=== PATIENT | male | born 1945 | race Caucasian/White ===

== ENCOUNTER → 2017-10-08 | Outpatient (CLI) | payer OTHER, MEDICARE | LOC: BHCLAF 09:15 | PROVIDERS: ATTEND Internal Medicine Cardiovascular Disease | DX: I71.2 Thoracic aortic aneurysm, without rupture (principal); I10 Essential (primary) hypertension; I25.10 Atherosclerotic heart disease of native coronary artery without angina pectoris | CPT/HCPCS: 93306-PO ==

== ENCOUNTER → 2017-10-25 | Outpatient (CLI) | payer OTHER, MEDICARE ==
[~2017-10-25] MED LIST: IOPAMIDOL (ISOVUE 370) 100 ML BTL IV ONE
== END ==
LOC: FIMAGING 07:49
PROVIDERS: ATTEND Internal Medicine Cardiovascular Disease
DX: I71.2 Thoracic aortic aneurysm, without rupture (principal); J43.9 Emphysema, unspecified
CPT/HCPCS: 71275; Q9967

== ENCOUNTER 2018-01-28 07:31 | Day surgery (SDC) | payer OTHER, MEDICARE ==
[2018-01-28] MEDS ORDERED: DIAZEPAM 5 MG TAB PO ONE (07:37)
[2018-01-28] MEDS ORDERED: NS 1,000 ML IV ONE (07:37)
[2018-01-28] MEDS ORDERED: FAMOTIDINE 20 MG TAB PO ONE (07:37)
[2018-01-28] MEDS ORDERED: diphenhydrAMINE 25 MG CAP PO ONE ×2 (07:37→08:05)
[2018-01-28] MEDS ORDERED: ASPIRIN EC 325 MG TAB PO ONE ×2 (07:37→08:05)
--- NOTE | 2018-01-28 07:57 | CPEKG ---
Heart Rate: 51 RR Interval: 1176 P-R Interval: 144 QRSD Interval: 106 QT Interval: 488 QTC Interval: 450 P Nunnelly: 39 QRS Nunnelly: -38 T Wave Nunnelly: 23 EKG Severity - BORDERLINE ECG - EKG Impression: SINUS RHYTHM EKG Impression: BORDERLINE IVCD WITH LAD Electronically Signed By: Rj Worthy 28-Jan-2018 10:05:40
[2018-01-28] MEDS ORDERED: FAMOTIDINE 20 MG TAB ONE (08:05)
[2018-01-28] MEDS ORDERED: DIAZEPAM 5 MG TAB ONE (08:06)
[2018-01-28 08:14] LABS: PLATELET COUNT 233 10^3/uL (150-400)
[2018-01-28 08:22] LABS: INR 0.95 (0.83-1.16); PROTIME(PATIENT) 12.9 SEC (12.0-15.0)
[2018-01-28] MEDS ORDERED: HEPARIN 10,000 UNIT/10 ML MDV (1,000 UNIT/ML) ONE (08:30)
[2018-01-28] MEDS ORDERED: MIDAZOLAM 2 MG/2 ML VIAL ONE (08:30)
[2018-01-28] MEDS ORDERED: LIDOCAINE 1% 300 MG/30 ML SDV ONE (08:30)
[2018-01-28] MEDS ORDERED: VERAPAMIL 5 MG/2 ML VIAL ONE (08:30)
[2018-01-28] MEDS ORDERED: fentaNYL 100 MCG/2 ML INJ ONE (08:30)
[2018-01-28] MEDS ORDERED: IOPAMIDOL (ISOVUE-370) 150 ML BTL IV ONE (08:30)
--- NOTE | 2018-01-28 09:33 | PDGENHP ---
History & Physical Chief Complaint: thoracic aortic aneurysm History of Present Illness: tani has a known thoracic aortic aneurysm with plan for surgery with Dr. Saad reed in [place] for an elective repair. He needs an angiogram to rule out obstructive coronary disease prior to his operation. Pertinent Past, Social, Family History: Father of an aneurysm rupture. The patient does not smoke or use illicit drugs. He does not abuse alcohol. 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 Relevant Physical Exam: The patient is normotensive with normal plethsmography trace assisted Estrada's test on right and left. the heart is normal with faint murmur over aortic area. Lungs are clear to auscultation bilaterally. Abdomen is obese with positive bowel sounds. body habitus precludes an accurate examination. Ext: Chronic venous stasis changes. Cardiorespiratory Assessment: See above along with sedation plan of care.
--- NOTE | 2018-01-28 09:39 | PDPROPOC ---
Sedation Plan of Care Sedation Plan of Care: vital signs stable, mental status noted, patient educated of risks, benefits, alternatives, patient can tolerate sedation ASA Classification: ASA 3 Planned drugs: fentanyl, midazolam Mallampati Score: Class 4 Mallampati Reference Image: Patient passed 3-3-2 rule?: No (patient with thick and short neck likely difficult airway)
--- NOTE | 2018-01-28 10:45 | PDDXCAT ---
Diagnostic Cath Note - . Date: 01/28/18 Metal Hardener: Gillian Indication: other (The patient has CAD and pulmonary hypertension. This is a diagnostic cath prior to open heart surgery. ) - Procedure Access: left wrist Procedure: left heart catheterization, coronary angiography, left ventriculogram - Materials Left Heart Cath size: 6F Left Heart Cath materials: standard multipack (JL4, JR4, pigtail), JL5.0 - Findings-Left Heart Catheterization LM: The LM is 8 mm in size. LEWIS III flow. Bifurcates into an LAD and circumflex system. There is no flow limiting obstruction of the LM. LAD: LAD is 5mm in size. It gives rise to a 3.5 mm diagonal vessel. There is a 50% stenosis of the proximal and principle diagonal. LEWIS III flow is preserved. The LAD courses to the anterior apex without evidence of obstruction , dissection, or thrombus. LCX: The circumflex is 5 mm in size. It gives rise to two very small obtuse marginal branches. There is a 50% stenosis of the ostial beta branch of the principle OM, which looks even tighter in the cranial projections. No flow limiting obstruction is identified. RCA: The RCA is dominant. It is 3.5 mm in size. There is plaque that is eccentric in the mid right coronary that is either an eccentric plaque of ostial complete obstruction of an RV branch. There is LEWIS III flow to the PDA and PLV branches, which are small. EDP: The LVEDP is 19 mmHg. LVEF: The EF is 55%. Wall motion: On the LV gram there is normal LV systolic function. The EF is 55% . We are unable to tell if there are two or three Sinuses of Valsalva. The pateint;s body habitus precluded a sharp image on LV gram. The ascending thoracic aorta, aortic arch, and proximal portion of the descending thoracic aorta all appear to be enlarged (there may be some degree of magnification of the images because of the camera angles and patietn body habitus). Complications: NONE. Estimated blood loss: <50ml Closure method: manual pressure Assessment: The patient has [place] vessel coronary disease. There is also a thoracic aortic aneurysm. There is no evidence of aortic stenosis upon pullback accross the aortic valve. Plan: The patient will proceed with planned open heart surgery with Dr. Nash. Intraoperative FE is recommended to assess the aortic valve at the time of the planned thoracic aortic aneurysm repair. It does not appear that concomitant bypass surgery will be required. The patient does have non flow limiting coronary artery disease, which will require medical management. Ultimately the decision for whether or not bypass surgery of the diagonal or circumflex obtuse marginal arteries will be left up to Dr. Nash. Intervention: NONE. Patient Problems: Problems Problem Status Onset Atelectasis Acute Elevated troponin Acute Hypoxia Acute
[2018-01-28] MEDS ORDERED: NITROGLYCERIN 0.4 MG BTL SL PRN (11:22)
[2018-01-28] MEDS ORDERED: HYDROCODONE/APAP 5/325 TAB PO PRN (11:22)
[2018-01-28] MEDS ORDERED: ONDANSETRON 4 MG/2 ML VIAL IVP PRN (11:22)
[2018-01-28] MEDS ORDERED: ATROPINE SULFATE 1 MG/10 ML SYR IVP PRN (11:22)
[2018-01-28] MEDS ORDERED: OXYCODONE/APAP 5/325 TAB PO PRN (11:22)
== END 2018-01-28 14:48 | disposition home or self-care (01) ==
LOC: FCATH 07:31
PROVIDERS: ATTEND Internal Medicine Cardiovascular Disease
DX: Z01.810 Encounter for preprocedural cardiovascular examination (principal); I71.2 Thoracic aortic aneurysm, without rupture; I25.10 Atherosclerotic heart disease of native coronary artery without angina pectoris; I27.20 Pulmonary hypertension, unspecified
CPT/HCPCS: 93005; 93458; C1769; J1644; J2250; J3010; Q9967

== ENCOUNTER → 2018-05-13 | Outpatient (CLI) | payer OTHER, MEDICARE | LOC: BHFA 10:45 | PROVIDERS: ATTEND Internal Medicine Interventional Cardiology | DX: I71.9 Aortic aneurysm of unspecified site, without rupture (principal) ==

== ENCOUNTER 2018-11-28 08:00 | Observation (INO) | payer OTHER, MEDICARE ==
--- NOTE | 2018-11-21 11:31 | GHP ---
[f rep st] PREOP HISTORY AND PHYSICAL DATE OF ADMISSION: 11/28/2018 CHIEF COMPLAINT: Epigastric incisional ventral hernia. HISTORY OF PRESENT ILLNESS: The patient is a pleasant 72-year-old male who presents with an epigastr ic ventral hernia at the lower end of his sternotomy scar which was done for repair of AAA with porci ne valve and root repair in January of 2018. The patient had some issues with coughing after his surgery . Currently, he notices some soreness along the entire incision associated with coughing. His cardi othoracic surgeon is aware of this, and the patient tells me he thinks his sternal closure is healed well and intact. He had a CT scan on 10/09/2018 which shows a 4.9 x 4.5 cm hernia with a neck of 1.9 cm. PAST MEDICAL HISTORY: AAA, coronary artery disease, conductive hearing loss, GERD, high blood pressu re, hyperlipidemia, obstructive sleep apnea, osteoarthritis, pulmonary hypertension. PAST SURGICAL HISTORY: Heart surgery, knee replacement, laminotomy. MEDICATIONS: Aspirin 81 mg, citalopram 20 mg, meloxicam 15 mg, metoprolol succinate 25 mg, omeprazol e 20 mg, oxygen, simvastatin 20 mg. ALLERGIES: Penicillin. FAMILY MEDICAL HISTORY: Breast cancer, diabetes, AAA, leukemia. SOCIAL HISTORY: This patient is with 2 children. He is retired. He occasionally drinks alc ohol. He is a former smoker. PHYSICAL EXAM: GENERAL: Alert and oriented, well-dressed, well-nourished male in no acute distress. HEENT: Normocephalic, atraumatic. No gross hearing deficits. Mucous membranes moist. PERRLA. C HEST: Clear to auscultation bilaterally without wheezes, rhonchi, or rales. CARDIAC: Regular rate and rhythm without murmurs. Well-healed midline chest scar. ABDOMEN: Soft, but protuberant, nonten andre, nondistended. Reducible epigastric hernia just below his xiphoid process under scar. No tender ness. NEUROLOGIC: Alert and oriented, cranial nerves 2 through 12 are grossly intact. PSYCHIATRIC: Appropriate mood and affect. EXTREMITIES: Moves all extremities equally x4. IMPRESSION AND PLAN: The patient has a reducible ventral hernia in his epigastric area just under hi s sternotomy incision. This could be related to the coughing that he experienced after surgery. All risks and options have been discussed. Risks of surgery include, but are not limited to, infection, bleeding, recurrence, damage to surrounding structures, heart attack, and . Patient understand s and wishes to proceed. We will proceed with ventral hernia repair with mesh. Patient understands and wishes to proceed. He has received cardiac clearance from Dr. French. /[id number]/MODL
[2018-12-19] MEDS ORDERED: ceFAZolin 2 GM/DEXTROSE 100 ML IV ONE (06:03)
[2018-12-19] MEDS ORDERED: LR 1,000 ML IV ONE (06:04)
[2018-12-19 06:50] LABS: PLATELET COUNT 200 10^3/uL (150-400)
[2018-12-19] MEDS ORDERED: PROPOFOL/EMULSION 500 MG/50 ML BOTTLE IV ONE ×2 (06:56→08:32)
[2018-12-19] MEDS ORDERED: fentaNYL 250 MCG/5 ML INJ ONE (07:01)
--- NOTE | 2018-12-19 07:05 | PDHPUP ---
History & Physical Update H&P update statement: This history and physical update is based on an assessment of the patient which was completed after admission or registration (within 24 hours), but prior to the surgery/procedure. H&P update: H&P reviewed & patient examined, no change in patient's condition since H&P completed
--- NOTE | 2018-12-19 07:14 | PDANEPAE ---
ANE History of Present Illness 73 year old male for epigastric hernia repair with robot assist. History significant for CAD, Aortic valve replacement, Thoracic aneurysm, HTN, Sleep Apnea, Obesity and Depression. ANE Past Medical History - Cardiovascular History Hx Hypertension: Yes Hx Arrhythmias: No Hx Chest Pain: No Hx Coronary Artery / Peripheral Vascular Disease: Yes Hx CHF / Valvular Disease: Yes Hx Palpitations: No - Pulmonary History Hx COPD: No Hx Asthma/Reactive Airway Disease: No Hx Recent Upper Respiratory Infection: No Hx Oxygen in Use at Home: Yes O2 in Use at Home (L/minute): 2.L at noc Hx Sleep Apnea: Yes Sleep Apnea Screening Result - Last Documented: Positive Pulmonary History Comment: KOIR uses CPAP with supplemental 02 - Neurologic History Hx Cerebrovascular Accident: No Hx Seizures: No Hx Dementia: No - Endocrine History Hx Diabetes: No - Renal History Hx Renal Disorders: No - Liver History Hx Hepatic Disorders: No - Neurological & Psychiatric Hx Hx Neurological and Psychiatric Disorders: No - Cancer History Hx Cancer: No - Congenital Disorder History Hx Congenital Disorders: No - GI History Hx Gastrointestinal Disorders: Yes Gastrointestinal History Comment: GERD - Other Health History Other Health History: [place]. slow to heal - Chronic Pain History Chronic Pain: No - Surgical History Prior Surgeries: [facility] 2018. trigger finger right hand. RTKA 2013 ANE Review of Systems Review of systems is: negative Review of Systems: - Exercise capacity METS (RN): 4 METS ANE Patient History - Allergies Allergies/Adverse Reactions: Penicillins Allergy (Verified 05/28/14 17:13) Hives - Home Medications Home Medications: Citalopram [CeleXA 20 MG] 20 mg PO DAILY 05/28/14 [Last Taken 12/19/18] Meloxicam [Mobic 15 mg] 15 mg PO DAILY 05/28/14 [Last Taken 12/19/18] Omeprazole [Prilosec 20 mg] 20 mg PO DAILY 05/28/14 [Last Taken 12/19/18] Metoprolol Succinate Xr [Toprol Xl 25 mg (*)] 25 mg PO DAILY 12/18/18 [Last Taken 12/19/18] Propylene Glycol/Peg 400/Pf [Systane 0.3-0.4% Eye Drops] 1 each OP DAILY PRN 12/03 [Last Taken 11/19/18] Simvastatin [Zocor] 20 mg PO DAILY 12/18/18 [Last Taken 12/19/18] - NPO status NPO Since - Liquids (Date): 12/19/18 NPO Since - Liquids (Time): 05:30 NPO Since - Solids (Date): 12/18/18 NPO Since - Solids (Time): 19:00 - Smoking Hx Smoking Status: Former smoker - Family Anes Hx Family Hx Anesthesia Complications: none ANE Labs/Vital Signs - Labs Result Diagrams: 12/19/18 06:41 - Vital Signs Blood Pressure: 158/99 Heart Rate: 69 Respiratory Rate: 18 O2 Sat (%): 91 Height: 175.26 cm Weight: 104.326 kg ANE Physical Exam - Airway Neck exam: FROM Mallampati Score: Class 3 Mouth exam: normal dental/mouth exam - Pulmonary Pulmonary: no respiratory distress - Cardiovascular Cardiovascular: regular rate and rhythym - ASA Status ASA Status: III ANE Anesthesia Plan Anesthesia Plan: general endotracheal anesthesia Specialized Airway: video laryngoscope
[2018-12-19] MEDS ORDERED: BUPIVACAINE 0.5% 30 ML SDV ONE (07:16)
[2018-12-19] MEDS ORDERED: ROCURONIUM 50 MG/5 ML VIAL ONE ×2 (08:02)
[2018-12-19] MEDS ORDERED: ONDANSETRON 4 MG/2 ML VIAL ONE (08:05)
[2018-12-19] MEDS ORDERED: DEXAMETHASONE 4 MG/ML VIAL ONE (08:05)
[2018-12-19] MEDS ORDERED: ONDANSETRON 4 MG/2 ML VIAL IVP PRN (08:27)
[2018-12-19] MEDS ORDERED: ALBUTEROL 3 ML DEYVIAL IH PRN (08:27)
[2018-12-19] MEDS ORDERED: fentaNYL 100 MCG/2 ML INJ IVP PRN (08:27)
[2018-12-19] MEDS ORDERED: PHENYLEPHRINE HCL 100 MCG/ML SYR IVP PRN (08:27)
[2018-12-19] MEDS ORDERED: NALOXONE HCL 0.4 MG/ML INJ IVP PRN (08:27)
[2018-12-19] MEDS ORDERED: LABETALOL HCL 5 MG/ML 20 ML MDV IVP PRN (08:27)
[2018-12-19] MEDS ORDERED: oxyCODONE IR 5 MG TAB PO PRN ×2 (08:27→11:08)
[2018-12-19] MEDS ORDERED: DEXAMETHASONE 4 MG/ML VIAL IVP PRN (08:27)
[2018-12-19] MEDS ORDERED: NALOXONE HCL 0.4 MG/ML INJ ONE (10:28)
--- NOTE | 2018-12-19 10:30 | POSTOPPROG ---
Post Op Note Date of Operation: 12/19/18 Surgeon: Irineo Daniels [employer] Segment Leader: Tyron Anesthesiologist: Hung Anesthesia: GET(General Endotracheal) Pre-op Diagnosis: Ventral hernia Post-op Diagnosis: same Indication: same Procedure: Robotic ventral hernia repair with mesh Findings: 3cm defect. Inf/Abcess present in the surg proc area at time of surgery?: No Depth: Organ Space EBL: Minimal Bowel Protocol: N/A Clean Closure Performed: N/A
--- NOTE | 2018-12-19 10:43 | POSTANESTH ---
Post Anesthetic Evaluation Cardiovascular Status: Normal, Stable Respiratory Status: Requires Airway Assist Level of Consciousness/Mental Status: Mildly Sleepy, Arousable Pain Control: Adequate, Prn Tx Ordered Nausea/Vomiting Control: Adequate, Prn Tx Ordered Complications Possibly Related to Anesthesia: None Noted
[2018-12-19] MEDS ORDERED: ONDANSETRON DISINTEGRATING 4 MG TAB PO PRN (11:09)
[2018-12-19] MEDS ORDERED: Propylene Glycol/Peg 400/Pf [Systane 0.3-0.4% Eye Drop] 1 EACH OP PRN (11:11)
[2018-12-19] MEDS ORDERED: HYDROmorphONE/DILAUDID 1 MG/ML INJ ONE (11:16)
[2018-12-19] MEDS: HYDROmorphONE/DILAUDID 1 MG/ML INJ IVP PRN ×3 (11:17→11:41)
[2018-12-19] MEDS: METOPROLOL SUCCINATE XR 25 MG TAB PO SCH (13:42)
[2018-12-19] MEDS: ACETAMINOPHEN 325 MG TAB PO PRN ×2 (15:14→19:19)
[2018-12-20 07:14] VITALS: BP 155/83
[2018-12-20] MEDS: METOPROLOL SUCCINATE XR 25 MG TAB PO SCH (07:47)
[2018-12-20] MEDS: ACETAMINOPHEN 325 MG TAB PO PRN (07:48)
--- NOTE | 2018-12-20 08:17 | PDHOMEO2F ---
Home Oxygen Face to Face Home Orders: I certify that a physician or a nurse practitioner or physician's behavioral health assistant has had a [id number] encounter with this patient on the date of this order due to the diagnosis listed, which relates to the primary reason the patient requires home oxygen. Alternative treatments have been tried, or considered, and deemed ineffective. It is anticipated that supplemental oxygen will result in improvement with treatment. Home oxygen qualifying diagnosis: Hypoxia SpO2 on room air (%): 82 Frequency of home oxygen needed: continuous Home oxygen liters per minute: 5 Home oxygen delivery device: nasal cannula Concentrator: No E-tanks for mobility and back up: Yes If ordering portable O2, is the patient mobile in the home?: Yes I certify that, based on these findings, the home oxygen is medically necessary for this patient for the following length of time. Length of time home oxygen needed: 1 month
--- NOTE | 2018-12-20 08:20 | SOAPPROG ---
SOAP Progress Note Assessment/Plan: Assessment/plan: 73 y/o M s/p robotic ventral hernia repair POD #1 Increased O2 needs. Sating at 82% on RA. Normally wears CPAP with O2 at night. Will need home O2 for discharge. Dysuria. Likely due to larose catheter during surgery. Pt denies hematuria. Improving. No fever. Postop pain. Well controlled with Tylenol alone. Does not want narcotics. Dispo: d/c home today with home O2 S: Pain at hernia site. Tolerating regular diet. Not passing gas yet. O: Alert Afebrile RRR No increased WOB Abdomen: soft, nontender, nondistended, normoactive BS 12/20/18 08:17 Objective: Vital Signs Temp Pulse Resp BP Pulse Ox 37.7 C 67 13 155/83 H 82 L 12/20/18 07:11 12/20/18 07:11 12/20/18 07:11 12/20/18 07:11 12/20/18 07:37 Laboratory Results 12/19/18 06:41 12/19/18 12/20/18 12/21/18 05:59 05:59 05:59 Intake Total 1375 Output Total 1106 Balance 269 ICD10 Worksheet Patient Problems: Problems Problem Status Onset Atelectasis Acute Elevated troponin Acute Hypoxia Acute
--- NOTE | 2018-12-20 08:55 | ASDISCHSUM ---
Discharge Information Plan Status:Home with No Needs Medically Cleared to Leave:12/20/2018 Discharge Date:12/20/2018 CM D/C Disposition:Home, Routine, Self-Care ADT D/C Disposition:Home, Routine, Self-Care Projected Discharge Date:12/20/2018 Transportation at D/C:Family Discharge Delay Reason: Follow-Up Date:12/20/2018 Discharge Slot: Final Diagnosis: Placement Information Patient Contact Information Contact Name:AMBER Relationship: Address:[address] [address] City:[place] Alternate Phone: State/Zip Code:[place] [address] Email: Financial Information Financial Class:Medicare Primary Plan Desc:MEDICARE OUTPATIENT Primary Plan Number:[id number] Secondary Plan Desc:MADY/DEBBIE SUPPLEMENT Secondary Plan Number:[id number] Assessment Information LACE LACE Length of stay for Answers: 1 day current admission Acuity / Level of Answers: No Care: Did the patient have an inpatient admission? Comorbidities - select Answers: Coronary Artery Disease all that apply Opioid dependence / Chronic pain Other Notes: HTN; Aortic valve replacement # of Emergency department Answers: 0 visits in the last 6 months Social determinants Answers: Mental health diagnosis (anxiety, depression, pers onality disorders, etc.) Score: 11 Date Signed: 12/20/2018 08:54 AM Electronically Signed By:Isatu Nash RN Intervention Information
[2018-12-20] MEDS ORDERED: Meloxicam [Mobic] 15 MG PO SCH (09:00)
[2018-12-20] MEDS ORDERED: PANTOPRAZOLE SODIUM 40 MG TAB PO SCH (09:00)
[2018-12-20] MEDS ORDERED: ATORVASTATIN CALCIUM 10 MG TAB PO SCH (09:00)
--- NOTE | 2018-12-21 15:53 | GOP ---
[f rep st] OPERATIVE REPORT DATE OF OPERATION: 12/19/2018 SURGEON: Irineo Daniels MD MANAGER FOREIGN: Kimberly Ackerman NP. ANESTHESIA: General endotracheal anesthesia. ANESTHESIOLOGIST: Dr. Persaud. PREOPERATIVE DIAGNOSIS: Ventral hernia. POSTOPERATIVE DIAGNOSIS: Ventral hernia. PROCEDURE PERFORMED: Robotic-assisted laparoscopic ventral hernia repair with mesh. FINDINGS: The patient was found to have a 5 cm ventral hernia defect in his previous median sternoto my incision. ESTIMATED BLOOD LOSS: Less than 25 cc. There were no complications. DESCRIPTION OF PROCEDURE: Patient was taking the operating room where he received a satisfactory gen eral endotracheal anesthesia by Dr. Persaud. He was positioned on the table with a slight flex in the table. A Veress needle was inserted just below the umbilicus. Trocar was introduced. Laparoscope was introduced. Good visualization was obtained. The hernia defect was clearly visualized. Under d irect vision, 2 lateral trocars were placed, left and right. At that point, the robot was brought in and docked to the central camera port and good visualization was present. The camera was targeted a nd after adequate positioning, the other 2 arms were docked to the robot. Instruments were introduce d under direct vision. At that point, dissection ensued around the hernia defect. The peritoneum wa s incised and the peritoneal sac was dissected free and reduced, and a sub-peritoneal pocket was crea allen around the hernia defect. The defect was then closed directly using 0 V-Loc suture to approximat e the defect. A 2nd suture was run on top of this to further tighten up the closure. There was a fa ir amount of tension on the muscular closure. After that was completed and felt to be secure, a dual -sided polyester mesh patch was introduced and placed over the hernia defect. It was placed under th e limbs of the peritoneum, which held it in place. It was then sutured in place with a running 2-0 V -Loc suture around the periphery of the mesh, securing it to the fascia circumferentially. Portions of the peritoneum were reapproximated with 3-0 Vicryl suture, but the peritoneum could not be complet lauren reconnected. Hemostasis was assured. Trocars were removed under direct vision, and the patient was undocked from the robot. Trocar sites were closed with 4-0 Monocryl subcuticular sutures and all layers infiltrated with 0.5% Marcaine. He tolerated the procedure well. /[id number]/MODL
== END 2018-12-20 10:34 | disposition home or self-care (01) ==
LOC: F3E 12-19 05:57 → F2W 12-19 11:16
PROVIDERS: ADMIT Surgery; ATTEND Surgery
PROC: 0WUF4JZ Supplement Abdominal Wall with Synthetic Substitute, Percutaneous Endoscopic Approach (ICD-10-PCS; principal; 2018-12-19 07:15)
PROC: 8E0WXCZ Robotic Assisted Procedure of Trunk Region (ICD-10-PCS; principal; 2018-12-19 07:15)
DX: K43.2 Incisional hernia without obstruction or gangrene (principal); I25.10 Atherosclerotic heart disease of native coronary artery without angina pectoris; K21.9 Gastro-esophageal reflux disease without esophagitis; I10 Essential (primary) hypertension; E78.00 Pure hypercholesterolemia, unspecified; G47.33 Obstructive sleep apnea (adult) (pediatric); I27.20 Pulmonary hypertension, unspecified
CPT/HCPCS: 49652; C1781; J0690; J1100; J1170; J2310; J2405; J2704; J3010